=== PATIENT | female | born 1985 | race American Indian/Alaskan Native ===

== ENCOUNTER 2017-11-13 11:12 | Emergency (ER) | payer MEDICAID, OTHER ==
[2017-11-13 11:28] VITALS: BP 125/84
[2017-11-13] MEDS ORDERED: SOLU-Medrol IV ONE (12:17)
[2017-11-13] MEDS ORDERED: BENADRYL IV ONE (12:17)
[2017-11-13] MEDS ORDERED: NACL 0.9% 1000 ML 1,000 ML IV ONE (12:17)
[2017-11-13] MEDS ORDERED: MORPHINE IV ONE ×2 (12:17→13:57)
[2017-11-13] MEDS ORDERED: CIPRODEX AS ONE (12:18)
--- NOTE | 2017-11-13 12:28 | Emergency Department Report ---
HPI - General Chief Complaint: Headache Time Seen by Provider: 11/13/17 12:06 - HPI HPI: 31-year-old female presents to the emergency department with complaint of a left-sided headache and some ear pain that has been going on since about last night. Patient does have a history of migraine headaches. She tried some Tylenol this morning around 7:30 AM without much relief. The headache is left-sided and behind her eye. She has some photophobia but denies any blurry vision. No slurred speech, numbness or paresthesias or any neurological deficits. She goes to [facility] for primary care. She says that she last had a headache like this about one month ago and went to a different emergency department for treatment at that time. She took an uber to get here but will have her mother pick her up if she is able to be discharged. No recent travel or sick contacts at home. ED Past Medical Hx - Past Medical History Previous Medical History?: Yes Hx Hypertension: No Hx Diabetes: No Hx Deep Vein Thrombosis: No Hx Renal Disease: No Hx Sickle Cell Disease: No Hx Headaches / Migraines: Yes Hx Seizures: No Hx Asthma: No Hx HIV: No - Surgical History Past Surgical History?: Yes Additional Surgical History: x 2 - Social History Smoking Status: Current Every Day Smoker Substance Use Type: None - Medications Home Medications: Home Medications Medication Instructions Recorded Confirmed Last Taken Type Vit No.126/Iron/Folic 1 each PO DAILY 08/15/13 09/29/13 09/28/13 09:00 History [Classic Tablet] NIFEdipine [Procardia] 10 mg PO Q6HR 09/29/13 09/29/13 09/29/13 01:30 History Tobramycin [Tobrex] 5 drop BID #1 bottle 11/13/17 Unknown Rx ED Review of Systems ROS: Stated complaint: HEAD/NECK PAIN Other details as noted in HPI Comment: All other systems reviewed and negative Constitutional: denies: chills, fever Eyes: other (photophobia). denies: eye discharge ENT: denies: ear pain, throat pain Respiratory: denies: cough, shortness of breath, wheezing Cardiovascular: denies: chest pain, palpitations Gastrointestinal: denies: abdominal pain, nausea, diarrhea Genitourinary: denies: urgency, dysuria, discharge Musculoskeletal: denies: back pain, joint swelling, arthralgia Skin: denies: rash, lesions Neurological: headache. denies: weakness, numbness Physical Exam - Physical Exam Vital Signs: Vital Signs 11/13/17 11:25 Temperature 98.4 F Pulse Rate 67 Respiratory 16 Rate Blood Pressure 125/84 O2 Sat by Pulse 97 Oximetry Physical Exam: GENERAL: The patient is well-developed well-nourished. HENT: Normocephalic. Atraumatic. Patient has moist mucous membranes. Normal -appearing bilateral tympanic membranes and right external ear canal. The left external ear canal is inflamed with some mild discharge seen concerning for an otitis externa. EYES: Extraocular motions are intact. Pupils equal reactive to light bilaterally. No nystagmus. NECK: Supple. Trachea is midline. CHEST/LUNGS: Clear to auscultation. There is no respiratory distress noted. HEART/CARDIOVASCULAR: Regular. There is no tachycardia. There is no murmur. ABDOMEN: Abdomen is soft, nontender. Patient has normal bowel sounds. There is no abdominal distention. SKIN: Skin is warm and dry. NEURO: The patient is awake, alert, and oriented. The patient is cooperative. The patient has no focal neurologic deficits. The patient has normal speech. Cranial nerves II through XII grossly intact. MUSCULOSKELETAL: There is no tenderness or deformity. There is no limitation range of motion. There is no evidence of acute injury. ED Course Vital Signs 11/13/17 11:25 Temperature 98.4 F Pulse Rate 67 Respiratory 16 Rate Blood Pressure 125/84 O2 Sat by Pulse 97 Oximetry ED Medical Decision Making - Radiology Data Radiology results: report reviewed CT HEAD WITHOUT CONTRAST INDICATION: Headache. COMPARISON: None similar. FINDINGS: Noncontrast head CT demonstrates normal ventricles and sulci without acute or recent infarct, hemorrhage, mass effect or midline shift. No abnormal extra-axial fluid collections. Posterior fossa structures and basilar cisterns within normal limits. Symmetric eye globes. Clear paranasal sinuses and mastoid air cells. Intact calvarium. Normal overlying scalp soft tissues. CONCLUSION: No acute intracranial CT abnormality, as described. Thank you for the opportunity to participate in this patient's care. Transcribed By: RS Dictated By: JC AGUILERA MD Electronically Authenticated By: JC AGUILERA MD Signed Date/Time: 11/13/17 8613 - Medical Decision Making 31-year-old female presents with a left-sided headache with some photophobia. She had the same kind of headache about one month ago. She used to have a history of these recurrent headaches but says that she is to self medicate using marijuana and can no longer do so. She has a neurologist but has not seen him in a while and needs a referral from her PCP. CT of the head without contrast does not show any bleed, shift, mass, ischemia or any other acute process. He required a few doses of different medications but eventually the patient's discomfort greatly improved and the patient says that she was feeling well and on for discharge home and asking for discharge. No focal, motor or sensory deficits in her cranial nerves are intact. Vital signs stable throughout her ED course including being afebrile. - Differential Diagnosis migraine, tension headache, cluster headache, brain bleed Critical Care Time: No Critical care attestation.: If time is entered above; I have spent that time in minutes in the direct care of this critically ill patient, excluding procedure time. ED Disposition Clinical Impression: Headache Qualifiers: Headache type: unspecified Headache chronicity pattern: unspecified pattern Intractability: not intractable Qualified Code(s): R51 - Headache Otitis externa Qualifiers: Otitis externa type: unspecified type Chronicity: acute Laterality: left Qualified Code(s): H60.502 - Unspecified acute noninfective otitis externa, left ear Disposition: TO HOME OR SELFCARE Is pt being admited?: No Condition: Stable Instructions: Otitis Externa (ED), Acute Headache (ED) Additional Instructions: Follow-up with your primary care physician in the next few days and then it is also recommended that you return to see your neurologist regarding your headaches. Take the antibiotic eardrops for your external ear infection. Return to the emergency Department with any worsening of your symptoms or any acute distress. Prescriptions: Tobramycin [Tobrex] 5 drop BID #1 bottle Referrals: PRIMARY CAREMD [Primary Care Provider] - [facility] Time of Disposition: 15:50
--- NOTE | 2017-11-13 14:46 | Cat Scan Report ---
CT HEAD WITHOUT CONTRAST INDICATION: Headache. COMPARISON: None similar. FINDINGS: Noncontrast head CT demonstrates normal ventricles and sulci without acute or recent infarct, hemorrhage, mass effect or midline shift. No abnormal extra-axial fluid collections. Posterior fossa structures and basilar cisterns within normal limits. Symmetric eye globes. Clear paranasal sinuses and mastoid air cells. Intact calvarium. Normal overlying scalp soft tissues. CONCLUSION: No acute intracranial CT abnormality, as described. Thank you for the opportunity to participate in this patient's care.
[2017-11-13] MEDS ORDERED: TORADOL IV ONE (15:08)
== END 2017-11-13 16:01 | disposition home or self-care (01) ==
LOC: ED 11:12
DX: R51 Headache (principal); H60.502 Unspecified acute noninfective otitis externa, left ear; H53.149 Visual discomfort, unspecified; F17.200 Nicotine dependence, unspecified, uncomplicated
CPT/HCPCS: 70450; 96374; 96375; 96376; 99283; J1200; J1885; J2270; J2930; J7030